=== PATIENT | female | born 1960 | race Hispanic/Latino ===

== ENCOUNTER 2024-11-16 11:37 | Emergency (ER) | payer BC ==
[~2024-11-16] VITALS: Ht 157.5 cm; Wt 72.6 kg
[~2024-11-16 11:37] MED LIST: PYRIDIUM200 M1 PO; Z.0.BENICAR20 MG PO; Z.0.CIPRO500 MG PO; Z.0.ELMIRON100 MG PO; Z.0.NEXIUM40 MG PO; [UNRECOGNIZED DRUG - OTHER] PO
[2024-11-16 12:13] LABS: BASOPHILS % 0.2 % (0.0-1.0); EOSINOPHILS % 0.1 % (0.0-6.0); LYMPHOCYTES % 11.5 % (18.0-39.1); MONOCYTES % 3.9 % (4.4-11.3); NEUTROPHILS % 83.9 % (38.7-80.0); RED CELL DISTRIBUTION WIDTH 15.1 % (11.7-14.4)
[2024-11-16] MEDS: SODIUM CHLORIDE 0.9% 1000ML 1,000 ML IV ONE (12:20)
[2024-11-16 12:41] LABS: EST GLOMERULAR FILTRATION RATE 68.0 ML/MIN (>=60)
[2024-11-16 13:05] LABS: EPITHELIAL CELLS,URINE FEW /LPF; LEUKOCYTE ESTERASE ,URINE NEGATIVE (NEGATIVE); PROTEIN,URINE DIPSTICK 2+ (NEGATIVE); URINE UROBILINOGEN 1 mg/dL (0.2 - 1)
[2024-11-16] MEDS ORDERED: IOPAMIDOL 370 MG/ML 100 ML INFUS..BTL INJ ONE (13:34)
[2024-11-16] MEDS ORDERED: ONDANSETRON ODT4 MG PO (15:12)
[2024-11-16] MEDS ORDERED: CEPHALEXIN500 MG PO (15:12)
[2024-11-16 15:16] VITALS: PULSE 75; RESP 19; TEMP 97.7; O2SAT 100
== END 2024-11-16 15:26 | disposition home or self-care (01) ==
LOC: ER 11:42
DX: R11.2 Nausea with vomiting, unspecified (principal); K52.9 Noninfective gastroenteritis and colitis, unspecified; N39.0 Urinary tract infection, site not specified; R42 Dizziness and giddiness; I10 Essential (primary) hypertension; E11.65 Type 2 diabetes mellitus with hyperglycemia
CPT/HCPCS: 36415; 74177; 80053; 81001; 83690; 85025; 87086; 87186; 93005; 99284; J7030; Q9967